=== PATIENT | male | born 1935 | race Native Hawaiian/Other Pacific Islander ===

== ENCOUNTER 2016-09-07 14:45 | Inpatient (IN) | payer OTHER ==
[~2016-09-07] VITALS: Ht 185.4 cm; Wt 112.7 kg
[2016-09-07 15:50] VITALS: BP 126/73; TEMP 99.1; Ht 185.4 cm; Wt 112.7 kg
[2016-09-07 20:00] VITALS: BP 137/74; TEMP 98.2
[2016-09-07 21:20] LABS: PLATELET COUNT 223 K/uL (142-355)
[2016-09-07 21:33] LABS: POTASSIUM 4.3 mmol/L (3.6-5.2)
[2016-09-08 08:00] VITALS: BP 154/71; TEMP 98
[2016-09-08] MEDS ORDERED: LISI5TAB10 PO (15:31)
[2016-09-08] MEDS ORDERED: FOLI1TAB26 PO (15:31)
[2016-09-08] MEDS ORDERED: METO25TA4 PO (15:32)
[2016-09-08] MEDS ORDERED: MULTIVITAMI1 PO (15:33)
[2016-09-08] MEDS ORDERED: PANTPAK PO (15:40)
[2016-09-08] MEDS ORDERED: MIRALAX3350 N1 PO (15:40)
[2016-09-08] MEDS ORDERED: THIA100T8 PO (15:41)
[2016-09-08] MEDS ORDERED: SEROQUEL25 MG PO (15:41)
[2016-09-08] MEDS ORDERED: BUDE1AER5 INH (15:42)
[2016-09-08] MEDS ORDERED: CETIRIZINE10 MG PO (15:42)
[2016-09-08] MEDS ORDERED: COLCRYS 0.6MG0.6 MG PO (15:43)
[2016-09-08] MEDS ORDERED: VITAMIN B-122500 MCG PO (15:43)
[2016-09-08] MEDS ORDERED: PRADAXA150 MG PO (15:43)
[2016-09-08] MEDS ORDERED: DIGOX250 MCG PO (15:44)
[2016-09-08] MEDS ORDERED: LACTTAB PO (15:44)
[2016-09-08] MEDS ORDERED: SIMV40TA57 PO (15:46)
[2016-09-08] MEDS ORDERED: FISH OIL1 C10 PO (15:46)
[2016-09-08] MEDS ORDERED: MAGNESIUM500 M1 PO (15:46)
[2016-09-08] MEDS ORDERED: ULORIC40 MG PO (15:47)
[2016-09-08] MEDS ORDERED: MYRBETRIQ25 MG PO (15:48)
== END 2016-09-08 12:45 | disposition short-term general hospital (02) | DRG 556 ==
LOC: MED/SURG 14:45
PROVIDERS: ADMIT Emergency Medicine
DX: M62.81 Muscle weakness (generalized) (principal); R53.81 Other malaise; R10.9 Unspecified abdominal pain; N45.1 Epididymitis; N43.2 Other hydrocele; I10 Essential (primary) hypertension; I48.91 Unspecified atrial fibrillation; J44.9 Chronic obstructive pulmonary disease, unspecified
CPT/HCPCS: 36415; 51702; 80053; 82272; 85027

== ENCOUNTER 2016-09-08 12:45 | Inpatient (IN) | payer OTHER ==
[~2016-09-08] VITALS: Ht 198.1 cm; Wt 111.8 kg
[2016-09-08 13:48] VITALS: BP 154/71; TEMP 98.7; Ht 198.1 cm; Wt 111.8 kg
[2016-09-08] MEDS ORDERED: FOLI1TAB26 PO (15:31)
[2016-09-08] MEDS ORDERED: LISI5TAB10 PO (15:31)
[2016-09-08] MEDS ORDERED: METO25TA4 PO (15:32)
[2016-09-08] MEDS ORDERED: MULTIVITAMI1 PO (15:33)
[2016-09-08] MEDS ORDERED: MIRALAX3350 N1 PO (15:40)
[2016-09-08] MEDS ORDERED: PANTPAK PO (15:40)
[2016-09-08] MEDS ORDERED: SEROQUEL25 MG PO (15:41)
[2016-09-08] MEDS ORDERED: THIA100T8 PO (15:41)
[2016-09-08] MEDS ORDERED: CETIRIZINE10 MG PO (15:42)
[2016-09-08] MEDS ORDERED: BUDE1AER5 INH (15:42)
[2016-09-08] MEDS ORDERED: PRADAXA150 MG PO (15:43)
[2016-09-08] MEDS ORDERED: VITAMIN B-122500 MCG PO (15:43)
[2016-09-08] MEDS ORDERED: COLCRYS 0.6MG0.6 MG PO (15:43)
[2016-09-08] MEDS ORDERED: LACTTAB PO (15:44)
[2016-09-08] MEDS ORDERED: DIGOX250 MCG PO (15:44)
[2016-09-08] MEDS ORDERED: FISH OIL1 C10 PO (15:46)
[2016-09-08] MEDS ORDERED: SIMV40TA57 PO (15:46)
[2016-09-08] MEDS ORDERED: MAGNESIUM500 M1 PO (15:46)
[2016-09-08] MEDS ORDERED: ULORIC40 MG PO (15:47)
[2016-09-08] MEDS ORDERED: MYRBETRIQ25 MG PO (15:48)
[2016-09-08 16:00] VITALS: BP 133/64; TEMP 98.1
[2016-09-08 20:00] VITALS: BP 134/57; TEMP 98.1
[2016-09-09] VITALS: BP 112/68; TEMP 98.1
[2016-09-09 04:00] VITALS: BP 118/60; TEMP 97.8
[2016-09-09 05:14] LABS: PLATELET COUNT 179 K/uL (142-355)
[2016-09-09 05:39] LABS: POTASSIUM 4.2 mmol/L (3.6-5.2)
[2016-09-09 08:00] VITALS: BP 121/65; TEMP 98.8
[2016-09-09 12:00] VITALS: BP 130/72; TEMP 98.3
[2016-09-09 16:00] VITALS: BP 131/62; TEMP 97.7
[2016-09-09 20:00] VITALS: BP 126/56; TEMP 98
[2016-09-10 00:15] VITALS: BP 147/79; TEMP 98
[2016-09-10 04:00] VITALS: BP 153/65; TEMP 97.4
[2016-09-10 05:51] LABS: PLATELET COUNT 167 K/uL (142-355)
[2016-09-10 06:01] LABS: POTASSIUM 3.7 mmol/L (3.6-5.2)
[2016-09-10 08:00] VITALS: BP 135/62; TEMP 98.6
[2016-09-10 12:00] VITALS: BP 128/64; TEMP 98.6
[2016-09-10 16:00] VITALS: BP 130/66; TEMP 98.2
[2016-09-10 20:18] VITALS: BP 166/66; TEMP 98.2
[2016-09-11] VITALS: BP 138/81; TEMP 98.1
[2016-09-11 04:00] VITALS: BP 129/56; TEMP 97.4
[2016-09-11 05:37] LABS: PLATELET COUNT 215 K/uL (142-355)
[2016-09-11 05:52] LABS: POTASSIUM 3.5 mmol/L (3.6-5.2)
[2016-09-11 08:00] VITALS: BP 119/68; TEMP 98
[2016-09-11 12:00] VITALS: BP 131/65; TEMP 97.8
[2016-09-11 16:00] VITALS: BP 140/72; TEMP 98.3
[2016-09-11 20:00] VITALS: BP 155/80; TEMP 97.4
[2016-09-12] VITALS: BP 91/58; TEMP 98
[2016-09-12 04:00] VITALS: BP 141/65; TEMP 97.5
[2016-09-12 08:00] VITALS: BP 159/76; TEMP 98.4
[2016-09-12 10:06] LABS: PLATELET COUNT 201 K/uL (142-355)
[2016-09-12 10:18] LABS: POTASSIUM 3.8 mmol/L (3.6-5.2)
[2016-09-12 12:00] VITALS: BP 170/82; TEMP 98.5
[2016-09-12 16:00] VITALS: BP 171/82; TEMP 97.4
[2016-09-12 20:00] VITALS: BP 185/71; TEMP 97.4
[2016-09-13 04:00] VITALS: BP 126/61; TEMP 97.6
[2016-09-13 05:05] LABS: PLATELET COUNT 201 K/uL (142-355)
[2016-09-13 05:24] LABS: POTASSIUM 3.5 mmol/L (3.6-5.2)
[2016-09-13 08:00] VITALS: BP 151/76; TEMP 97.3
[2016-09-13 12:00] VITALS: BP 146/55; TEMP 96.9
[2016-09-13 16:00] VITALS: BP 154/70; TEMP 97.7
[2016-09-13 20:00] VITALS: BP 137/68; TEMP 98.7
[2016-09-14] VITALS: BP 144/62; TEMP 98.3
[2016-09-14 04:00] VITALS: BP 144/73; TEMP 98
[2016-09-14 04:50] LABS: PLATELET COUNT 210 K/uL (142-355)
[2016-09-14 05:02] LABS: POTASSIUM 3.6 mmol/L (3.6-5.2)
[2016-09-14 08:00] VITALS: BP 139/52; TEMP 97.8
[2016-09-14 12:00] VITALS: BP 136/58; TEMP 97.6
[2016-09-14 16:00] VITALS: BP 141/62; TEMP 97.8
[2016-09-14 20:00] VITALS: BP 120/52; TEMP 97.7
[2016-09-15] VITALS (7 sets, daily range): BP systolic 121–165; BP diastolic 65–80; TEMP 97.6–98.5
[2016-09-15 04:46] LABS: PLATELET COUNT 178 K/uL (142-355)
[2016-09-15 05:12] LABS: POTASSIUM 2.9 mmol/L (3.6-5.2); SODIUM 144 mmol/L (136-145)
[2016-09-16] VITALS: BP 159/73; TEMP 98.2
[2016-09-16 04:00] VITALS: BP 130/67; TEMP 97.8
[2016-09-16 05:20] LABS: PLATELET COUNT 180 K/uL (142-355)
[2016-09-16 05:46] LABS: POTASSIUM 3.3 mmol/L (3.6-5.2)
[2016-09-16 08:23] VITALS: BP 148/81; TEMP 98.4
[2016-09-16 12:09] VITALS: BP 156/72; TEMP 98.6
[2016-09-16 16:00] VITALS: BP 114/53; TEMP 98.7
[2016-09-16 20:00] VITALS: BP 153/64; TEMP 97.7
[2016-09-17] VITALS: BP 104/71; TEMP 97.5
[2016-09-17 04:00] VITALS: BP 93/67; TEMP 98.4
[2016-09-17 08:00] VITALS: BP 150/69; TEMP 98.3
[2016-09-17 12:00] VITALS: BP 148/62; TEMP 98
== END 2016-09-17 14:30 | disposition home or self-care (01) | DRG 377 ==
LOC: MED/SURG 12:45
PROVIDERS: ADMIT Emergency Medicine
DX: K92.2 Gastrointestinal hemorrhage, unspecified (principal); I50.23 Acute on chronic systolic (congestive) heart failure; E87.0 Hyperosmolality and hypernatremia; D62 Acute posthemorrhagic anemia; I48.91 Unspecified atrial fibrillation; R74.8 Abnormal levels of other serum enzymes; E80.6 Other disorders of bilirubin metabolism; F03.90 Unspecified dementia, unspecified severity, without behavioral disturbance, psychotic disturbance, mood disturbance, and anxiety; R19.5 Other fecal abnormalities; E87.8 Other disorders of electrolyte and fluid balance, not elsewhere classified; K76.89 Other specified diseases of liver; N45.1 Epididymitis; I10 Essential (primary) hypertension
CPT/HCPCS: 36415; 36430; 80053; 80162; 82140; 82607; 82728; 82747; 82948; 83540; 83550; 83605; 83615; 83735; 83880; 84466; 85027; 85044; 86140; 86850; 86900; 86901; 86922; 87040; 87045; 87205; 87328; 87329; 87798; 87899; 93005; 94640; 94664; 94760; J1940; J3490; P9016; Q9963

== ENCOUNTER 2016-09-17 12:35 | Inpatient (IN) | payer OTHER ==
[~2016-09-17 12:35] MED LIST: BUDE1AER5 INH; CETIRIZINE10 MG PO; COLCRYS 0.6MG0.6 MG PO; DIGOX250 MCG PO; FISH OIL1 C10 PO; FOLI1TAB26 PO; LACTTAB PO; LISI5TAB10 PO; MAGNESIUM500 M1 PO; METO25TA4 PO; MIRALAX3350 N1 PO; MULTIVITAMI1 PO; MYRBETRIQ25 MG PO; PANTPAK PO; PRADAXA150 MG PO; SEROQUEL25 MG PO; SIMV40TA57 PO; THIA100T8 PO; ULORIC40 MG PO; VITAMIN B-122500 MCG PO
== END 2016-09-27 09:06 | disposition still patient (30) ==
LOC: PAVB 12:35 → PAVA 12:35 → PAVB 09-20 08:29
PROVIDERS: ADMIT Internal Medicine
DX: M62.81 Muscle weakness (generalized) (principal); K92.2 Gastrointestinal hemorrhage, unspecified; R41.82 Altered mental status, unspecified; N45.1 Epididymitis; R26.89 Other abnormalities of gait and mobility; R48.8 Other symbolic dysfunctions; M10.09 Idiopathic gout, multiple sites
CPT/HCPCS: 80061; 84550; G0103

== ENCOUNTER 2016-09-27 09:37 | Inpatient (IN) | payer OTHER | END 2016-10-28 09:30 | disposition still patient (30) | LOC: PAVB 09:37 | PROVIDERS: ADMIT Internal Medicine | DX: M62.81 Muscle weakness (generalized) (principal); K92.2 Gastrointestinal hemorrhage, unspecified; R41.82 Altered mental status, unspecified; N45.1 Epididymitis; R26.89 Other abnormalities of gait and mobility; R48.8 Other symbolic dysfunctions; M10.09 Idiopathic gout, multiple sites | CPT/HCPCS: 87045; 87205; 87328; 87329; 87493; 87798; 87899 ==

== ENCOUNTER 2016-10-28 09:41 | Inpatient (IN) | payer OTHER | END 2016-11-27 15:19 | disposition still patient (30) | LOC: PAVB 09:41 | PROVIDERS: ADMIT Internal Medicine | DX: Z51.89 Encounter for other specified aftercare (principal) ==

== ENCOUNTER 2016-11-27 15:28 | Inpatient (IN) | payer OTHER | END 2016-12-28 09:31 | disposition still patient (30) | LOC: PAVB 15:28 | PROVIDERS: ADMIT Internal Medicine | DX: Z51.89 Encounter for other specified aftercare (principal) ==

== ENCOUNTER 2016-12-08 17:43 | Outpatient (CLI) | payer OTHER | END 2016-12-08 18:45 | disposition home or self-care (01) | LOC: RAD 17:43 | DX: R05 Cough (principal); R09.3 Abnormal sputum ==

== ENCOUNTER 2016-12-28 09:50 | Inpatient (IN) | payer OTHER | END 2017-01-28 08:39 | disposition still patient (30) | LOC: PAVB 09:50 | PROVIDERS: ADMIT Internal Medicine | DX: Z51.89 Encounter for other specified aftercare (principal) ==

== ENCOUNTER 2017-01-21 15:17 | Outpatient (CLI) | payer OTHER | END 2017-01-21 19:09 | disposition home or self-care (01) | LOC: LAB 15:17 → RAD 15:17 | DX: M54.89 Other dorsalgia (principal) | CPT/HCPCS: 81000 ==

== ENCOUNTER 2017-01-28 08:56 | Inpatient (IN) | payer OTHER | END 2017-02-27 10:10 | disposition still patient (30) | LOC: PAVB 08:56 | PROVIDERS: ADMIT Internal Medicine | DX: Z51.89 Encounter for other specified aftercare (principal) ==

== ENCOUNTER 2017-02-14 14:09 | Outpatient (CLI) | payer OTHER ==
[2017-02-14 14:33] LABS: POTASSIUM 3.9 mmol/L (3.6-5.2)
== END 2017-02-14 15:10 | disposition home or self-care (01) ==
LOC: LAB 14:09
PROVIDERS: Internal Medicine
DX: E87.6 Hypokalemia (principal); R60.0 Localized edema
CPT/HCPCS: 80048; 83735

== ENCOUNTER 2017-02-27 10:27 | Inpatient (IN) | payer OTHER | END 2017-03-30 12:54 | disposition still patient (30) | LOC: PAVB 10:27 | PROVIDERS: ADMIT Internal Medicine ==

== ENCOUNTER 2017-02-28 04:43 | Outpatient (CLI) | payer OTHER ==
[2017-02-28 05:33] LABS: PLATELET COUNT 147 K/uL (142-355)
== END 2017-02-28 05:45 | disposition home or self-care (01) ==
LOC: LAB 04:43
PROVIDERS: Internal Medicine
DX: D51.8 Other vitamin B12 deficiency anemias (principal); I10 Essential (primary) hypertension; I48.91 Unspecified atrial fibrillation
CPT/HCPCS: 36415; 80053; 80162; 83735; 84550; 85027

== ENCOUNTER 2017-03-30 13:12 | Inpatient (IN) | payer OTHER | END 2017-04-29 09:14 | disposition still patient (30) | LOC: PAVB 13:12 | PROVIDERS: ADMIT Internal Medicine ==

== ENCOUNTER 2017-04-29 09:26 | Inpatient (IN) | payer OTHER | END 2017-05-30 09:27 | disposition still patient (30) | LOC: PAVB 09:26 | PROVIDERS: ADMIT Internal Medicine ==

== ENCOUNTER 2017-05-30 09:47 | Inpatient (IN) | payer OTHER | END 2017-06-30 09:46 | disposition still patient (30) | LOC: PAVB 09:47 | PROVIDERS: ADMIT Internal Medicine ==

== ENCOUNTER 2017-06-30 10:23 | Inpatient (IN) | payer OTHER | END 2017-07-28 09:13 | disposition still patient (30) | LOC: PAVB 10:23 | PROVIDERS: ADMIT Internal Medicine ==

== ENCOUNTER 2017-07-28 09:26 | Inpatient (IN) | payer OTHER | END 2017-08-28 08:00 | disposition still patient (30) | LOC: PAVB 09:26 | PROVIDERS: ADMIT Internal Medicine ==

== ENCOUNTER 2017-08-28 09:00 | Inpatient (IN) | payer OTHER | END 2017-09-27 09:01 | disposition still patient (30) | LOC: PAVB 09:00 | PROVIDERS: ADMIT Internal Medicine ==

== ENCOUNTER 2017-08-31 06:27 | Outpatient (CLI) | payer OTHER ==
[2017-08-31 07:01] LABS: PLATELET COUNT 145 K/uL (142-355)
[2017-08-31 07:19] LABS: POTASSIUM 4.1 mmol/L (3.6-5.2)
== END 2017-08-31 22:24 | disposition home or self-care (01) ==
LOC: LAB 06:27
PROVIDERS: Internal Medicine
DX: I10 Essential (primary) hypertension (principal); E78.4 Other hyperlipidemia
CPT/HCPCS: 80053; 80061; 80162; 83735; 84153; 84550; 85027

== ENCOUNTER 2017-09-27 09:11 | Inpatient (IN) | payer OTHER | END 2017-10-28 08:50 | disposition still patient (30) | LOC: PAVB 09:11 | PROVIDERS: ADMIT Internal Medicine ==

== ENCOUNTER 2017-10-28 08:59 | Inpatient (IN) | payer OTHER | END 2017-11-27 14:17 | disposition still patient (30) | LOC: PAVB 08:59 | PROVIDERS: ADMIT Internal Medicine ==

== ENCOUNTER 2017-11-27 14:39 | Inpatient (IN) | payer OTHER | END 2017-12-28 08:00 | disposition still patient (30) | LOC: PAVB 14:39 | PROVIDERS: ADMIT Internal Medicine ==

== ENCOUNTER 2017-11-28 14:14 | Outpatient (CLI) | payer OTHER | END 2017-11-28 19:52 | disposition home or self-care (01) | LOC: MRI 14:14 | DX: M54.5 Low back pain (principal) ==

== ENCOUNTER 2017-12-14 06:39 | Outpatient (CLI) | payer OTHER ==
[2017-12-14 07:45] LABS: PLATELET COUNT 184 K/uL (142-355)
[2017-12-14 08:00] LABS: POTASSIUM 5.2 mmol/L (3.6-5.2)
[2017-12-14 08:15] LABS: PARTIAL THROMBOPLASTIN TIME 19.8 SECONDS (24.5-33.6)
== END 2017-12-14 22:29 | disposition home or self-care (01) ==
LOC: RESP 06:39 → LAB 06:39
PROVIDERS: Internal Medicine
DX: I10 Essential (primary) hypertension (principal); E78.4 Other hyperlipidemia; Z79.899 Other long term (current) drug therapy; Z51.81 Encounter for therapeutic drug level monitoring; Z01.818 Encounter for other preprocedural examination
CPT/HCPCS: 80048; 85027; 85610; 85730; 93005

== ENCOUNTER 2017-12-27 14:25 | Outpatient (CLI) | payer OTHER | END 2017-12-27 23:43 | disposition home or self-care (01) | LOC: RAD 14:25 | DX: Z09 Encounter for follow-up examination after completed treatment for conditions other than malignant neoplasm (principal) ==

== ENCOUNTER 2017-12-28 09:00 | Inpatient (IN) | payer OTHER | END 2018-01-28 10:16 | disposition still patient (30) | LOC: PAVB 09:00 | PROVIDERS: ADMIT Internal Medicine ==

== ENCOUNTER 2018-01-28 10:43 | Inpatient (IN) | payer OTHER | END 2018-02-27 09:17 | disposition still patient (30) | LOC: PAVB 10:43 | PROVIDERS: ADMIT Internal Medicine ==

== ENCOUNTER 2018-02-27 09:40 | Inpatient (IN) | payer OTHER | END 2018-03-30 08:44 | disposition still patient (30) | LOC: PAVB 09:40 | PROVIDERS: ADMIT Internal Medicine ==

== ENCOUNTER 2018-02-28 05:48 | Outpatient (CLI) | payer OTHER ==
[2018-02-28 06:42] LABS: PLATELET COUNT 157 K/uL (142-355)
[2018-02-28 07:03] LABS: POTASSIUM 4.7 mmol/L (3.6-5.2)
== END 2018-02-28 22:57 | disposition home or self-care (01) ==
LOC: LAB 05:48
PROVIDERS: Internal Medicine
DX: E53.8 Deficiency of other specified B group vitamins (principal); Z79.899 Other long term (current) drug therapy; I10 Essential (primary) hypertension; E78.5 Hyperlipidemia, unspecified; M10.9 Gout, unspecified
CPT/HCPCS: 36415; 80053; 80162; 82607; 83735; 84550; 85027

== ENCOUNTER 2018-03-03 13:03 | Outpatient (CLI) | payer OTHER | END 2018-03-03 19:35 | disposition home or self-care (01) | LOC: US 13:03 | DX: R26.2 Difficulty in walking, not elsewhere classified (principal) ==

== ENCOUNTER 2018-03-30 09:28 | Inpatient (IN) | payer OTHER | END 2018-04-29 08:29 | disposition still patient (30) | LOC: PAVB 09:28 | PROVIDERS: ADMIT Internal Medicine ==

== ENCOUNTER 2018-04-29 08:57 | Inpatient (IN) | payer OTHER | END 2018-05-30 11:04 | disposition still patient (30) | LOC: PAVB 08:57 | PROVIDERS: ADMIT Internal Medicine ==

== ENCOUNTER 2018-05-30 11:10 | Inpatient (IN) | payer OTHER | END 2018-06-30 10:47 | disposition still patient (30) | LOC: PAVB 11:10 | PROVIDERS: ADMIT Internal Medicine ==

== ENCOUNTER 2018-05-31 05:27 | Outpatient (CLI) | payer OTHER | END 2018-05-31 21:29 | disposition home or self-care (01) | LOC: LAB 05:27 | DX: E87.6 Hypokalemia (principal) | CPT/HCPCS: 82306; 82310 ==

== ENCOUNTER 2018-06-30 10:57 | Inpatient (IN) | payer OTHER | END 2018-07-28 10:14 | disposition still patient (30) | LOC: PAVB 10:57 | PROVIDERS: ADMIT Internal Medicine ==

== ENCOUNTER 2018-07-26 06:16 | Outpatient (CLI) | payer OTHER | END 2018-07-26 19:39 | disposition home or self-care (01) | LOC: LAB 06:16 | DX: Z51.81 Encounter for therapeutic drug level monitoring (principal) | CPT/HCPCS: 36415; 82565 ==

== ENCOUNTER 2018-07-28 10:22 | Inpatient (IN) | payer OTHER | END 2018-08-28 10:34 | disposition still patient (30) | LOC: PAVB 10:22 | PROVIDERS: ADMIT Internal Medicine ==

== ENCOUNTER 2018-08-22 09:06 | Outpatient (CLI) | payer OTHER | END 2018-08-22 21:03 | disposition home or self-care (01) | LOC: RESP 09:06 | DX: G56.03 Carpal tunnel syndrome, bilateral upper limbs (principal); G56.23 Lesion of ulnar nerve, bilateral upper limbs; G62.9 Polyneuropathy, unspecified ==

== ENCOUNTER 2018-08-28 10:42 | Inpatient (IN) | payer OTHER | END 2018-09-27 11:08 | disposition still patient (30) | LOC: PAVB 10:42 | PROVIDERS: ADMIT Internal Medicine | CPT/HCPCS: 95911 ==

== ENCOUNTER 2018-08-30 06:06 | Outpatient (CLI) | payer OTHER ==
[2018-08-30 08:26] LABS: PLATELET COUNT 131 K/uL (142-355)
[2018-08-30 09:09] LABS: POTASSIUM 4.4 mmol/L (3.6-5.2)
== END 2018-08-30 19:38 | disposition home or self-care (01) ==
LOC: LAB 06:06
PROVIDERS: Internal Medicine
DX: I10 Essential (primary) hypertension (principal); M10.9 Gout, unspecified; E78.49 Other hyperlipidemia; Z79.899 Other long term (current) drug therapy
CPT/HCPCS: 36415; 80053; 80061; 80162; 82607; 83735; 84153; 84550; 85027

== ENCOUNTER 2018-09-27 11:20 | Inpatient (IN) | payer OTHER | END 2018-10-28 08:33 | disposition still patient (30) | LOC: PAVB 11:20 | PROVIDERS: ADMIT Internal Medicine ==

== ENCOUNTER 2018-10-28 09:03 | Inpatient (IN) | payer OTHER | END 2018-11-27 09:33 | disposition still patient (30) | LOC: PAVB 09:03 | PROVIDERS: ADMIT Internal Medicine ==

== ENCOUNTER 2018-11-27 10:21 | Inpatient (IN) | payer OTHER | END 2018-12-28 10:32 | disposition still patient (30) | LOC: PAVB 10:21 | PROVIDERS: ADMIT Internal Medicine ==

== ENCOUNTER 2018-12-01 06:24 | Outpatient (CLI) | payer OTHER | END 2018-12-01 20:40 | disposition home or self-care (01) | LOC: LAB 06:24 | DX: Z79.899 Other long term (current) drug therapy (principal) | CPT/HCPCS: 36415; 82310 ==

== ENCOUNTER 2018-12-28 10:46 | Inpatient (IN) | payer OTHER | END 2019-01-28 16:23 | disposition still patient (30) | LOC: PAVB 10:46 | PROVIDERS: ADMIT Internal Medicine | CPT/HCPCS: G0283-GP ==

== ENCOUNTER 2019-01-28 16:50 | Inpatient (IN) | payer OTHER | END 2019-02-27 09:18 | disposition still patient (30) | LOC: PAVB 16:50 | PROVIDERS: ADMIT Internal Medicine ==

== ENCOUNTER 2019-02-27 09:42 | Inpatient (IN) | payer OTHER | END 2019-03-30 11:06 | disposition still patient (30) | LOC: PAVB 09:42 | PROVIDERS: ADMIT Internal Medicine ==

== ENCOUNTER 2019-02-28 08:10 | Outpatient (CLI) | payer OTHER ==
[2019-02-28 08:23] LABS: PLATELET COUNT 150 K/uL (142-355)
[2019-02-28 08:46] LABS: POTASSIUM 4.1 mmol/L (3.6-5.2)
== END 2019-02-28 23:48 | disposition home or self-care (01) ==
LOC: LAB 08:10
PROVIDERS: Internal Medicine
DX: E61.2 Magnesium deficiency (principal); E53.8 Deficiency of other specified B group vitamins; I10 Essential (primary) hypertension; I48.0 Paroxysmal atrial fibrillation; Z79.899 Other long term (current) drug therapy
CPT/HCPCS: 80053; 80162; 82607; 83735; 84550; 85027

== ENCOUNTER 2019-04-06 13:40 | Outpatient (CLI) | payer OTHER | END 2019-04-06 22:18 | disposition home or self-care (01) | LOC: RAD 13:40 | DX: J44.9 Chronic obstructive pulmonary disease, unspecified (principal); R05 Cough; R09.02 Hypoxemia ==

== ENCOUNTER 2019-04-16 13:31 | Outpatient (CLI) | payer OTHER | END 2019-04-16 21:10 | disposition home or self-care (01) | LOC: RAD 13:31 | DX: R05 Cough (principal); J44.1 Chronic obstructive pulmonary disease with (acute) exacerbation ==

== ENCOUNTER 2019-04-29 10:10 | Inpatient (IN) | payer OTHER | END 2019-05-30 08:32 | disposition still patient (30) | LOC: PAVB 10:10 | PROVIDERS: ADMIT Internal Medicine ==

== ENCOUNTER 2019-05-30 08:36 | Inpatient (IN) | payer OTHER | END 2019-06-30 09:53 | disposition still patient (30) | LOC: PAVB 08:36 | PROVIDERS: ADMIT Internal Medicine ==

== ENCOUNTER 2019-06-01 07:21 | Outpatient (CLI) | payer OTHER | END 2019-06-01 19:28 | disposition home or self-care (01) | LOC: LAB 07:21 | DX: M81.0 Age-related osteoporosis without current pathological fracture (principal) | CPT/HCPCS: 82306; 82310 ==

== ENCOUNTER 2019-06-30 10:21 | Inpatient (IN) | payer OTHER | END 2019-07-29 13:11 | disposition still patient (30) | LOC: PAVB 10:21 | PROVIDERS: ADMIT Internal Medicine ==

== ENCOUNTER 2019-07-29 13:43 | Inpatient (IN) | payer OTHER | END 2019-08-29 09:35 | disposition still patient (30) | LOC: PAVB 13:43 | PROVIDERS: ADMIT Internal Medicine ==

== ENCOUNTER 2019-08-13 15:52 | Outpatient (CLI) | payer OTHER | END 2019-08-13 23:11 | disposition home or self-care (01) | LOC: RAD 15:52 | DX: R06.02 Shortness of breath (principal); R06.2 Wheezing ==

== ENCOUNTER 2019-08-29 09:55 | Inpatient (IN) | payer OTHER | END 2019-09-28 08:59 | disposition still patient (30) | LOC: PAVB 09:55 | PROVIDERS: ADMIT Internal Medicine | CPT/HCPCS: 80061; 84153 ==

== ENCOUNTER 2020-04-16 14:23 | Outpatient (CLI) | payer OTHER ==
[2020-04-16 15:06] LABS: PLATELET COUNT 151 K/uL (142-355)
[2020-04-16 15:25] LABS: POTASSIUM 4.3 mmol/L (3.6-5.2)
== END 2020-04-16 20:49 | disposition home or self-care (01) ==
LOC: LAB 14:23
PROVIDERS: ATTEND Internal Medicine
DX: I48.91 Unspecified atrial fibrillation (principal); D64.89 Other specified anemias; F03.90 Unspecified dementia, unspecified severity, without behavioral disturbance, psychotic disturbance, mood disturbance, and anxiety; I10 Essential (primary) hypertension; I48.20 Chronic atrial fibrillation, unspecified; J44.9 Chronic obstructive pulmonary disease, unspecified; R53.83 Other fatigue; R53.81 Other malaise; Z79.899 Other long term (current) drug therapy
CPT/HCPCS: 80053; 80061; 82306; 83036; 84153; 84439; 84443; 84481; 85027

== ENCOUNTER 2020-11-17 11:37 | Outpatient (CLI) | payer OTHER | END 2020-11-17 14:01 | disposition home or self-care (01) | LOC: RAD 11:37 | PROVIDERS: ATTEND Nurse Practitioner Family | DX: J40 Bronchitis, not specified as acute or chronic (principal); R06.02 Shortness of breath; R06.2 Wheezing ==

== ENCOUNTER 2021-03-06 09:39 | Inpatient (IN) | payer OTHER ==
[~2021-03-06] VITALS: Ht 185.4 cm; Wt 111.8 kg
[~2021-03-06 09:39] MED LIST changes: +DIGOX125 MCG PO; -DIGOX250 MCG PO
[2021-03-06 09:55] VITALS: BP 166/89; TEMP 97.9
[2021-03-06 10:22] LABS: PLATELET COUNT 146 K/uL (142-355)
[2021-03-06 10:41] LABS: PARTIAL THROMBOPLASTIN TIME 36.7 SECONDS (24.5-33.6)
[2021-03-06 10:43] LABS: POTASSIUM 3.9 mmol/L (3.6-5.2); SODIUM 139 mmol/L (136-145)
--- NOTE | 2021-03-06 11:58 | NUR ---
Pt. ADMITTED TO ROOM [address] ALLEN. STATES "LAST NIGHT I FELT PRESSURE IN MY CHEST AND COULDN'T BREATH GOOD". Pt. HAS O2 AT 2L VIA N/C. Pt. UNABLE TO HOLD URINE AND URINATED ON PANTS.
[2021-03-06 14:51] VITALS: BP 159/73; TEMP 97.5; Ht 185.4 cm; Wt 111.8 kg
[2021-03-06 16:00] VITALS: BP 170/81; TEMP 97.6
[2021-03-06 20:00] VITALS: BP 123/64; TEMP 97.9
--- NOTE | 2021-03-06 20:17 | NUR ---
ON ROUNDING PATIENT IS SITTING UP IN THE BED. SHIFT ASSESSMENT COMPLETED. PATIENT HAS DIFFUSE EXPIRATORY WHEEZING. PATIENT ASSISTED WITH PUTTING ON BOXERS AND WHITE T-SHIRT AND THEN PUTTING ON GOWN. PATIENT WAS ABLE TO STAND UP AND WALK TO THE HEAD OF THE BED AND GET IN BED W/O ASSISTANCE. BED LOCKED IN LOW POSITION, CALL RAINEY WITHIN REACH.
[2021-03-07 00:12] VITALS: BP 140/78; TEMP 98.4
--- NOTE | 2021-03-07 00:45 | NUR ---
PATIENT RESTING QUIETLY WITH EYES CLOSED. AUDIBLE WHEEZING IS STILL NOTED AT REST. PATIENT IS GETTING DUONEBS TREATMENTS Q4 AND Q2 PRN. BED IS LOCKED IN LOW POSITION, SIDERAILS X2.
--- NOTE | 2021-03-07 03:57 | NUR ---
PATIENT IS RESTING QUIETLY WITH EYES CLOSED WHEN ROUNDING. ON FURTHER ASSESSMENT PATIENT IS NOTED WITH AUDIBLE WHEEZING WHILE ASLEEP. WILL LOOK AT ORDERS FOR ANY BREATHING TREATMENTS. BED LOCKED IN LOW POSITION AND SIDERAILS UP X2. CALL RAINEY WITHIN REACH.
[2021-03-07 04:00] VITALS: BP 143/89; TEMP 98.3
[2021-03-07 04:48] LABS: PLATELET COUNT 127 K/uL (142-355)
[2021-03-07 04:53] LABS: POTASSIUM 3.9 mmol/L (3.6-5.2)
[2021-03-07 08:00] VITALS: BP 141/63; TEMP 97.6
--- NOTE | 2021-03-07 08:00 | NUR ---
PT IN RESTROOM. PT INSTRUCTED TO CALL BEFORE GETTING OOB. PT STATES THAT HE WILL DO SO.
--- NOTE | 2021-03-07 09:30 | NUR ---
PT CALLED FOR ASSIST, ASSITANCE GIVEN TO RESTROOM, PT UNSTEADY ON HIS FEET.
--- NOTE | 2021-03-07 11:30 | NUR ---
PT CALLED FOR ASSISTANCE, ASSISTED TO STAND TO VOID IN URINAL.
[2021-03-07 12:00] VITALS: BP 112/69; TEMP 97.7
--- NOTE | 2021-03-07 13:27 | NUR ---
SOPZAYRA WITH PTS DAUGHTER, GALLO TO GIVE UPDATE
[2021-03-07] MEDS ORDERED: FURO40TA93 PO (13:32)
[2021-03-07] MEDS ORDERED: POTASSIUM CHLO20 ME2 PO (13:34)
[2021-03-07] MEDS ORDERED: METO50TA63 PO (13:43)
[2021-03-07] MEDS ORDERED: EUTHYROX75 MCG PO (13:48)
[2021-03-07] MEDS ORDERED: SIMV40TA57 (13:49)
[2021-03-07] MEDS ORDERED: PANTOPRAZOLE 40MG TA PO (13:52)
[2021-03-07] MEDS ORDERED: MONTELUKAST SOD10 MG PO (13:53)
[2021-03-07] MEDS ORDERED: FINASTERIDE5 MG PO (13:54)
[2021-03-07] MEDS ORDERED: TAMS0.4C PO (13:57)
[2021-03-07] MEDS ORDERED: MYRBETRIQ ER PO (14:01)
--- NOTE | 2021-03-07 14:04 | NUR ---
HOME MED LIST UPDATED ACCORDING TO BOTTLES. ATTEMPTED TO CALL [facility] NO ANSWER. DAUGHTER GALLO STATES THAT PT [facility]
[2021-03-07 16:00] VITALS: BP 92/74; TEMP 97.6
--- NOTE | 2021-03-07 17:00 | NUR ---
PT CALLED FOR ASSIST, STOOD AT PTS SIDE FOR HIM TO VOID
[2021-03-07 20:20] VITALS: BP 181/90; TEMP 98.2
--- NOTE | 2021-03-07 20:35 | NUR ---
SHIFT ASSESSMENT COMPLETED. PATIENT MEDS GIVEN. PATIENT IV TO THE LEFT FOREARM INFILTRATED. AREA RED TO TOUCH AND PAINFUL. ICE PACK PLACED AT THIS TIME. PATIENT ASSISTED BACK UP IN THE BED. BED IS LOCKED IN LOW POSITION, SIDERAIL X2, CALL RAINEY WITHIN REACH.
--- NOTE | 2021-03-07 22:57 | NUR ---
LATE ENTRY PATIENT FAMILY MEMBER WAS UPDATED ON THE PATIENTS CURRENT CONDITION
[2021-03-08 00:19] VITALS: BP 161/80; TEMP 97.5
--- NOTE | 2021-03-08 00:38 | NUR ---
PATIENT IV INFILTRATED. PATIENTS ARM WAS ICED ANAD ELIVATED. ANTIBOITIC WAS A NON VESICANT. PATIENT DENIES ANY PAIN OR ITCHING. PATIENT IN NO APPARENT DISTRESS
[2021-03-08 04:00] VITALS: BP 116/67; TEMP 97.6
--- NOTE | 2021-03-08 04:22 | NUR ---
LATE ENTRY: PATIENT RECIEVED A NEW IV TO THE LEFT HANG. 20G WITH ONE STICK, SALINE LOCKED
[2021-03-08 04:51] LABS: POTASSIUM 4.1 mmol/L (3.6-5.2)
[2021-03-08 04:58] LABS: PLATELET COUNT 131 K/uL (142-355)
[2021-03-08 08:00] VITALS: BP 127/61; TEMP 97.6
--- NOTE | 2021-03-08 09:15 | NUR ---
IN PT'S ROOM FOR MORNING ASSESSMENT AND MED ADMINISTRATION. PT IS SITTING UP ON THE BEDSIDE EATING BREAKFAST. PT IS ALERT AND ORIENTED X4 AND ANSWERS QUESTIONS APPROPRIATELY. LUNG SOUNDS ARE CLEAR AND A NONPRODUCTIVE COUGH IS PRESENT. S1 AND S2 HEART SOUNDS ARE AUSCULTATED, RADIAL PULSES ARE STRONG. +2 PITTING EDEMA IS PRESENT IN THE BLE, PEDAL PULSES ARE WEAK. BOWEL SOUNDS ARE PRESENT IN ALL FOUR QUADRANTS. PT HAS REDDENED DISCOLORED AREAS ON ARMS THAT ARE NORMAL WITH AGING. PT TOOK MORNING MEDICATIONS WITHOUT ANY DIFFICULTY. PT DENIES PAIN OR ANY NEEDS AT THIS TIME. PT WAS LEFT ON THE SIDE OF THE BED WITH CALL LIGHT WITHIN REACH. PT WAS INSTRUCTED TO CALL METHODOLOGIST PRIOR TO GETTING UP TO THE BS FOR ASSISTANCE. NO ACUTE DISTRESS IS NOTED AT THIS TIME. WILL CONTINUE TO MONITOR.
[2021-03-08 12:00] VITALS: BP 142/52; TEMP 97.6
--- NOTE | 2021-03-08 12:10 | NUR ---
PT CALLED FOR URINAL TO BE EMPTIED. WHEN COOK RO[facility] ENTERED THE ROOM THE PT WAS IN HIGH FOWLERS IN THE BED WATCHING TV. [facility] EMPTIED 850ML OF CLEAR YELLOW URINE FROM THE URINAL. SCHEDULED LEVAQUIN WAS HUNG, IV FLUSHED WITHOUT ANY DIFFICULTY. PT DENIES ANY NEEDS AT THIS TIME. WILL CONTINUE TO MONITOR.
[2021-03-08 16:00] VITALS: BP 140/71; TEMP 96.4
[2021-03-08 20:21] VITALS: BP 142/69; TEMP 98.4
[2021-03-09 00:11] VITALS: BP 147/50; TEMP 98.4
--- NOTE | 2021-03-09 01:35 | NUR ---
PT'S FAMILY MEMBER GALLO SANDERS CALLED FOR UPDATE ON PATIENT. INFORMATION WAS PROVIDED. THIS TIME WAS 21:30pm on the 03/09/21.
[2021-03-09 04:06] VITALS: BP 129/72; TEMP 97.9
--- NOTE | 2021-03-09 04:18 | NUR ---
PT CONTINUES TO REST QUIETLY. EYES CLOSED. NO RESP DISTRESS NOTED. O2 SAT IS 96 PERCENT.
[2021-03-09 05:31] LABS: PLATELET COUNT 139 K/uL (142-355)
[2021-03-09 05:51] LABS: POTASSIUM 3.8 mmol/L (3.6-5.2)
[2021-03-09 08:00] VITALS: BP 109/78; TEMP 98
[2021-03-09 12:00] VITALS: BP 122/60; TEMP 97.7
--- NOTE | 2021-03-09 13:26 | NUR ---
PT UP SITTING ON THE SIDE OF HIS BED. PT ALERT AND ORIENTED. PT COHERENT AND REMEMBERS ALL OF HIS DOCTORS APPOINTMENTS AND FAMILY HISTORY. PT HAS CLOTHES ON HANGERS AND SPREAD AROUND IN HIS ROOM. PT SELF-CARE WITH MINIMUM ASSISTANCE. DENIES ANY PAIN/DISCOMFORT AT PRESENT TIME. IV SITE TO LEFT HAND INTACT WITH NO SWELLING OR REDNESS NOTED. PTS EYE DROPS ARE AT BEDSIDE, PT STATED "I'VE ALREADY PUT MY DROPS IN. AM MEDS AND ABX ADMINISTERED ORDERED AND PT TOLERATED PO MEDS WELL WITH NO DIFFICULTY SWALLOWING.
[2021-03-09 16:00] VITALS: BP 140/81; TEMP 97.4
--- NOTE | 2021-03-09 18:59 | NUR ---
PT UP MAKING UP BED AND GAVE HIMSELF A BEDBATH TO PREPARE FOR BED TONIGHT. IV SITE TO LEFT HAND DISCONTINUED, PT ACCIDENTALLY PULLED OUT IV SITE TO LEFT HAND WHILE CHANGING CLOTHES. PT A&O X4. NAD NOTED. DENIES ANY PAIN OR DISCOMFORT. NICOTINE PATCH APPLIED TO LEFT ARM.
[2021-03-09 20:00] VITALS: BP 120/57; TEMP 97.7
--- NOTE | 2021-03-09 21:45 | NUR ---
20 G TO RIGHT ANTECUBITAL INSERTED X'S ONE ATTEMPT AT THIS TIME. IV SITE IS PATENT W/O ANY SIGNS OF EDEMA OR ERRYTHEMA AROUND THE SITE. NO S/S OF ACUTE DISTRESS NOTED OR EXHIBITED BY THE PT AT THIS TIME.
--- NOTE | 2021-03-09 22:49 | NUR ---
PM MEDS GIVEN AT THIS TIME. PT. TOLERATED WELL. PT. GOT UP TO THE EDGE OF THE BED TO TAKE MEDICATIONS. PT'S SOUNDED SHORT OF BREATH AND WINDED UPON EXERTION. EXPIRATORY AND INSPIRATORY WHEEZING HEARD W/O STETHOSCOPE AT THIS TIME. PRN BREATHING TX GIVEN AT THIS TIME. WILL CONTINUE TO MONITOR FOR ANY ACUTE CHANGES. BESIDES AUDIBLE WHEEZING, PT DENIES ANY OTHER NEEDS OR COMPLAINTS AT THIS TIME. PT LAID DOWN AND STATED "I'M READY FOR BED". CALL LIGHT WITHIN REACH AND VETERINARY MICROBIOLOGIST EXITED ROOM.
[2021-03-10] VITALS: BP 136/56; TEMP 98.2
--- NOTE | 2021-03-10 03:14 | NUR ---
0315 TX NOT GIVEN. PT REQUESTED NOT TO BE AWAKEN FOR TX.
[2021-03-10 04:00] VITALS: BP 130/54; TEMP 97.8
--- NOTE | 2021-03-10 05:20 | NUR ---
AUDIBLE WHEEZING HEARD AT THIS TIME BY PT AT THIS TIME. PRN BREATHING TX DONE BY RESP. AT THIS TIME. WILL REPORT IN AM SHIFT REPORT.
[2021-03-10 05:43] LABS: PLATELET COUNT 141 K/uL (142-355)
[2021-03-10 05:55] LABS: POTASSIUM 3.6 mmol/L (3.6-5.2)
[2021-03-10 08:00] VITALS: BP 125/83; TEMP 98.5
--- NOTE | 2021-03-10 10:53 | NUR ---
Patient has a follow up appointment with Dr. Manriquez's SUPERVISOR NUTRITIONAL YEAST Juan Carlos Bravo on 03/17/21 @ 11am. Inorganic Chemist notifed patient and nurse of the appointment. Inorganic Chemist also reminded him of his appointment with Dr. Iyer on 03/13/21 that was scheduled prior to hospital admission.
[2021-03-10 12:00] VITALS: BP 145/68; TEMP 97.8
--- NOTE | 2021-03-10 13:27 | NUR ---
PT DISCHARGED TO GO HOME PER HCP. PT UP SITTING ON THE BED. LUNG SOUNDS CLEAR. NAD NOTED. PT HAS PRODUCTIVE COUGH. IV SITE TO RIGHT FA DISCONTINUED WITH SWELLING OR REDNESS NOTED. PTS HOME MED GIVEN TO PT. DISCHARGE INSTRUCTIONS AND F/U APPOINTMENTS AND REFERRAL GIVEN TO PT, ALONG WITH PRESCRIPTIONS. DISCHARGE INSTRUCTIONS GIVEN TO CAREGIVER WHO CAME TO PICK PT UP FROM FACILITY. PT TRANSPORTED OUT OF FACILITY IN WHEELCHAIR WITH PERSONAL BELONGINGS.
== END 2021-03-10 13:35 | disposition home or self-care (01) | DRG 193 ==
LOC: ED 09:39 → MED/SURG 11:15
PROVIDERS: Hospitalist; ADMIT Internal Medicine Endocrinology, Diabetes & Metabolism; ATTEND Internal Medicine Endocrinology, Diabetes & Metabolism
DX: J18.8 Other pneumonia, unspecified organism (principal); J96.01 Acute respiratory failure with hypoxia; J44.0 Chronic obstructive pulmonary disease with (acute) lower respiratory infection; J44.1 Chronic obstructive pulmonary disease with (acute) exacerbation; I48.91 Unspecified atrial fibrillation; N40.0 Benign prostatic hyperplasia without lower urinary tract symptoms; E03.8 Other specified hypothyroidism; I10 Essential (primary) hypertension; M10.9 Gout, unspecified
CPT/HCPCS: 36415; 36600; 80048; 80053; 80162; 82550; 82805; 83880; 84484; 85027; 85610; 85730; 87040; 87635; 90686; 93005; 94640; 94664; 94760; 96365; 96367; 96374; 96375; 99284; J0456; J1650; J1940; J1956; J2930; U0003

== ENCOUNTER 2021-03-19 09:12 | Outpatient (CLI) | payer OTHER ==
[~2021-03-19 09:12] MED LIST changes: +EUTHYROX75 MCG PO; +FINASTERIDE5 MG PO; +FURO40TA93 PO; +METO50TA63 PO; +MONTELUKAST SOD10 MG PO; +MYRBETRIQ ER PO; +PANTOPRAZOLE 40MG TA PO; +POTASSIUM CHLO20 ME2 PO; +SIMV40TA57; +TAMS0.4C PO
[2021-03-19 09:32] LABS: PLATELET COUNT 126 K/uL (142-355)
[2021-03-19 10:00] LABS: POTASSIUM 3.9 mmol/L (3.6-5.2)
== END 2021-03-19 18:54 | disposition home or self-care (01) ==
LOC: LABW 09:12
PROVIDERS: ATTEND Nurse Practitioner Family
DX: I48.91 Unspecified atrial fibrillation (principal); R60.0 Localized edema; R06.89 Other abnormalities of breathing
CPT/HCPCS: 36415; 80053; 83880; 85027

== ENCOUNTER 2021-08-03 09:05 | Outpatient (CLI) | payer OTHER | END 2021-08-03 19:09 | disposition home or self-care (01) | LOC: CT 09:05 | PROVIDERS: ATTEND Nurse Practitioner Family | DX: J44.9 Chronic obstructive pulmonary disease, unspecified (principal); R22.1 Localized swelling, mass and lump, neck | CPT/HCPCS: 36415; 82565; 84520; Q9963 ==

== ENCOUNTER 2021-08-04 12:29 | Outpatient (CLI) | payer OTHER | END 2021-08-04 19:00 | disposition home or self-care (01) | LOC: LAB 12:29 | PROVIDERS: ATTEND Nurse Practitioner Family | DX: E03.8 Other specified hypothyroidism (principal) | CPT/HCPCS: 84439; 84443 ==

== ENCOUNTER 2021-09-08 14:51 | Outpatient (CLI) | payer OTHER | END 2021-09-08 19:47 | disposition home or self-care (01) | LOC: RESP 14:51 | PROVIDERS: ATTEND Specialist | DX: I35.0 Nonrheumatic aortic (valve) stenosis (principal); I38 Endocarditis, valve unspecified; I48.91 Unspecified atrial fibrillation ==

== ENCOUNTER 2021-12-08 14:56 | Outpatient (CLI) | payer OTHER | END 2021-12-08 18:54 | disposition home or self-care (01) | LOC: CT 14:56 | PROVIDERS: ATTEND Internal Medicine | DX: R47.81 Slurred speech (principal); R26.81 Unsteadiness on feet ==

== ENCOUNTER 2022-01-18 12:58 | Outpatient (CLI) | payer OTHER ==
[2022-01-19] MEDS ORDERED: TAMS0.4C PO (17:43)
[2022-01-19] MEDS ORDERED: FURO40TA93 PO (17:45)
[2022-01-19] MEDS ORDERED: FLONASE AL50 MCG/ACT NAS (17:45)
[2022-01-19] MEDS ORDERED: FEBUXOSTAT40 MG PO (17:46)
[2022-01-19] MEDS ORDERED: KLOR-CON M2020 MEQ PO (17:47)
[2022-01-19] MEDS ORDERED: BUDE1AER5 INH (17:48)
[2022-01-19] MEDS ORDERED: MONT10TA PO (17:48)
[2022-01-19] MEDS ORDERED: FINASTERIDE5 MG PO (17:49)
[2022-01-19] MEDS ORDERED: PANTOPRAZOLE 40MG TA PO (17:49)
[2022-01-19] MEDS ORDERED: SIMV40TA57 PO (17:50)
[2022-01-19] MEDS ORDERED: DIGOX125 MCG PO (17:50)
[2022-01-19] MEDS ORDERED: MYRBETRIQ50 MG PO (17:51)
[2022-01-19] MEDS ORDERED: METO25TA2 PO (17:51)
[2022-01-19] MEDS ORDERED: KP FOLIC ACID1 MG PO (17:52)
[2022-01-19] MEDS ORDERED: PRADAXA150 MG PO (17:52)
[2022-01-19] MEDS ORDERED: CYAN10009 IM (17:55)
[2022-01-19] MEDS ORDERED: EUTHYROX100 MCG PO (17:56)
[2022-01-19] MEDS ORDERED: TYLENOL325 MG PO (18:08)
[2022-01-19] MEDS ORDERED: VITAMIN D1000 UNI1 PO (18:09)
[2022-01-19] MEDS ORDERED: DULCOLAX SS100 MG PO (18:09)
== END 2022-01-18 18:55 | disposition home or self-care (01) ==
LOC: MRI 12:58
PROVIDERS: ATTEND Nurse Practitioner Family
DX: F03.90 Unspecified dementia, unspecified severity, without behavioral disturbance, psychotic disturbance, mood disturbance, and anxiety (principal); R26.81 Unsteadiness on feet; R47.81 Slurred speech; R53.1 Weakness
CPT/HCPCS: 36415; 82565; 84520

== ENCOUNTER 2022-01-19 08:54 | Inpatient (IN) | payer OTHER ==
[~2022-01-19] VITALS: Ht 184.2 cm; Wt 101.6 kg
[2022-01-19] VITALS (8 sets, daily range): BP systolic 142–158; BP diastolic 59–87; TEMP 98–99.3; Ht 184.2 cm; Wt 101.6 kg
[2022-01-19 10:22] LABS: PLATELET COUNT 155 K/uL (142-355)
[2022-01-19 10:31] LABS: POTASSIUM 3.8 mmol/L (3.6-5.2)
[2022-01-19] MEDS ORDERED: TAMS0.4C PO (17:43)
[2022-01-19] MEDS ORDERED: FURO40TA93 PO (17:45)
[2022-01-19] MEDS ORDERED: FLONASE AL50 MCG/ACT NAS (17:45)
[2022-01-19] MEDS ORDERED: FEBUXOSTAT40 MG PO (17:46)
[2022-01-19] MEDS ORDERED: KLOR-CON M2020 MEQ PO (17:47)
[2022-01-19] MEDS ORDERED: BUDE1AER5 INH (17:48)
[2022-01-19] MEDS ORDERED: MONT10TA PO (17:48)
[2022-01-19] MEDS ORDERED: FINASTERIDE5 MG PO (17:49)
[2022-01-19] MEDS ORDERED: PANTOPRAZOLE 40MG TA PO (17:49)
[2022-01-19] MEDS ORDERED: DIGOX125 MCG PO (17:50)
[2022-01-19] MEDS ORDERED: SIMV40TA57 PO (17:50)
[2022-01-19] MEDS ORDERED: METO25TA2 PO (17:51)
[2022-01-19] MEDS ORDERED: MYRBETRIQ50 MG PO (17:51)
[2022-01-19] MEDS ORDERED: KP FOLIC ACID1 MG PO (17:52)
[2022-01-19] MEDS ORDERED: PRADAXA150 MG PO (17:52)
[2022-01-19] MEDS ORDERED: CYAN10009 IM (17:55)
[2022-01-19] MEDS ORDERED: EUTHYROX100 MCG PO (17:56)
[2022-01-19] MEDS ORDERED: TYLENOL325 MG PO (18:08)
[2022-01-19] MEDS ORDERED: VITAMIN D1000 UNI1 PO (18:09)
[2022-01-19] MEDS ORDERED: DULCOLAX SS100 MG PO (18:09)
[2022-01-20] VITALS: BP 139/56; TEMP 97.9
[2022-01-20 04:00] VITALS: BP 121/56; TEMP 97.8
[2022-01-20 05:39] LABS: PLATELET COUNT 136 K/uL (142-355)
[2022-01-20 05:44] LABS: POTASSIUM 3.4 mmol/L (3.6-5.2)
[2022-01-20 08:00] VITALS: BP 138/81; TEMP 97.9
[2022-01-20 12:00] VITALS: BP 138/79; TEMP 97.9
[2022-01-20 16:00] VITALS: BP 111/63; TEMP 98.4
[2022-01-20 20:00] VITALS: BP 143/74; TEMP 98.1
[2022-01-21] VITALS: BP 145/64; TEMP 98.8
[2022-01-21 04:00] VITALS: BP 142/56; TEMP 97.8
[2022-01-21 08:00] VITALS: BP 188/90; TEMP 98.4
[2022-01-21 12:00] VITALS: BP 181/87; TEMP 98.1
[2022-01-21 16:00] VITALS: BP 135/75; TEMP 97.5
[2022-01-21] MEDS ORDERED: LEVAQUIN250 MG PO (16:23)
[2022-01-21 20:00] VITALS: BP 136/82; TEMP 98.1
[2022-01-22] VITALS: BP 128/71; TEMP 98.4
[2022-01-22 04:00] VITALS: BP 140/90; TEMP 98.1
[2022-01-22 08:00] VITALS: BP 126/76; TEMP 97.8
[2022-01-22 12:00] VITALS: BP 131/79; TEMP 98
== END 2022-01-22 02:10 | DRG 689 ==
LOC: ED 08:54 → MED/SURG 11:48
PROVIDERS: ADMIT Family Medicine; ATTEND Internal Medicine
DX: N39.0 Urinary tract infection, site not specified (principal); G92.8 Other toxic encephalopathy; B96.20 Unspecified Escherichia coli [E. coli] as the cause of diseases classified elsewhere; I48.91 Unspecified atrial fibrillation; Z79.01 Long term (current) use of anticoagulants; N40.0 Benign prostatic hyperplasia without lower urinary tract symptoms; E83.42 Hypomagnesemia; E87.6 Hypokalemia; J44.9 Chronic obstructive pulmonary disease, unspecified; I11.0 Hypertensive heart disease with heart failure; I50.9 Heart failure, unspecified; W18.39XA Other fall on same level, initial encounter; Y92.89 Other specified places as the place of occurrence of the external cause
CPT/HCPCS: 36415; 80053; 81002; 81015; 83735; 85027; 87077; 87086; 87088; 87186; 87635; 96360; 96361; 96365; 99284; J2543; J3475; U0003

== ENCOUNTER 2022-01-22 12:35 | Inpatient (IN) | payer OTHER ==
[~2022-01-22 12:35] MED LIST changes: +CYAN10009 IM; +DULCOLAX SS100 MG PO; +EUTHYROX100 MCG PO; +FEBUXOSTAT40 MG PO; +FLONASE AL50 MCG/ACT NAS; +KLOR-CON M2020 MEQ PO; +KP FOLIC ACID1 MG PO; +LEVAQUIN250 MG PO; +METO25TA2 PO; +MONT10TA PO; +MYRBETRIQ50 MG PO; +TYLENOL325 MG PO; +VITAMIN D1000 UNI1 PO
== END 2022-01-28 09:10 | disposition still patient (30) ==
LOC: PAVC 12:35
PROVIDERS: ADMIT Internal Medicine; ATTEND Internal Medicine
DX: N39.0 Urinary tract infection, site not specified (principal); B96.20 Unspecified Escherichia coli [E. coli] as the cause of diseases classified elsewhere; G92.8 Other toxic encephalopathy; M62.81 Muscle weakness (generalized); R13.12 Dysphagia, oropharyngeal phase; R26.2 Difficulty in walking, not elsewhere classified; R26.81 Unsteadiness on feet; Z74.1 Need for assistance with personal care
CPT/HCPCS: 87081

== ENCOUNTER 2022-01-23 07:02 | Outpatient (CLI) | payer OTHER | END 2022-01-23 18:55 | disposition home or self-care (01) | LOC: LAB 07:02 | PROVIDERS: ATTEND Internal Medicine | DX: I10 Essential (primary) hypertension (principal); R26.81 Unsteadiness on feet; R47.81 Slurred speech | CPT/HCPCS: 87081 ==

== ENCOUNTER 2022-02-27 13:44 | Inpatient (IN) | payer OTHER | END 2022-03-30 12:10 | disposition still patient (30) | LOC: PAVC 13:44 | PROVIDERS: ADMIT Internal Medicine; ATTEND Internal Medicine ==

== ENCOUNTER 2022-03-05 08:35 | Outpatient (CLI) | payer OTHER | END 2022-03-05 19:02 | disposition home or self-care (01) | LOC: LAB 08:35 | PROVIDERS: ATTEND Internal Medicine | DX: R47.1 Dysarthria and anarthria (principal); H02.403 Unspecified ptosis of bilateral eyelids; M62.81 Muscle weakness (generalized) | CPT/HCPCS: 36415; 82085; 82390; 82525; 82550; 82607; 82746; 83519; 84425; 84443; 85652; 86038; 86235; 86334 ==

== ENCOUNTER 2022-03-30 12:27 | Inpatient (IN) | payer OTHER | END 2022-04-29 15:15 | disposition still patient (30) | LOC: PAVC 12:27 | PROVIDERS: ADMIT Internal Medicine; ATTEND Internal Medicine ==

== ENCOUNTER 2022-04-28 14:25 | Outpatient (CLI) | payer OTHER ==
[2022-04-28 14:35] LABS: PLATELET COUNT 149 K/uL (142-355)
== END 2022-04-28 19:42 | disposition home or self-care (01) ==
LOC: LAB 14:25
PROVIDERS: ATTEND Internal Medicine
DX: R79.89 Other specified abnormal findings of blood chemistry (principal)
CPT/HCPCS: 85027

== ENCOUNTER 2022-04-29 15:41 | Inpatient (IN) | payer OTHER | END 2022-05-30 10:47 | disposition still patient (30) | LOC: PAVC 15:41 | PROVIDERS: ADMIT Internal Medicine; ATTEND Internal Medicine ==

== ENCOUNTER 2022-06-15 06:38 | Inpatient (IN) | payer OTHER ==
[~2022-06-15] VITALS: Ht 182.9 cm; Wt 101.6 kg
[2022-06-15 06:38] VITALS: BP 172/86; TEMP 97.8
[2022-06-15 07:41] LABS: PLATELET COUNT 148 K/uL (142-355)
[2022-06-15 07:47] LABS: POTASSIUM 4.2 mmol/L (3.6-5.2)
[2022-06-15 11:52] VITALS: BP 148/66; TEMP 98.6; Ht 182.9 cm; Wt 101.6 kg
[2022-06-15] MEDS ORDERED: ALLERGY RELIEF180 MG PO (14:16)
[2022-06-15] MEDS ORDERED: HYDR25SU3 RE (14:18)
[2022-06-15] MEDS ORDERED: AZELASTINE HYDR1 SPR NAS (14:23)
[2022-06-15] MEDS ORDERED: VITAMIN DE1000 MCG/M IM (14:28)
[2022-06-15] MEDS ORDERED: PSYL0.52C PO (14:37)
[2022-06-15] MEDS ORDERED: MULTIVITAMI1 PO (14:38)
[2022-06-15] MEDS ORDERED: SYSTAN1 OPTH (14:40)
[2022-06-15] MEDS ORDERED: [UNRECOGNIZED DRUG - OTHER] OPTH (14:42)
[2022-06-15 16:00] VITALS: BP 132/79; TEMP 98.1
[2022-06-15 19:33] VITALS: BP 144/71; TEMP 98.1
[2022-06-15 23:33] VITALS: BP 128/62; TEMP 98.4
[2022-06-16 03:33] VITALS: BP 146/67; TEMP 97.7
[2022-06-16 05:07] LABS: PLATELET COUNT 142 K/uL (142-355)
[2022-06-16 05:26] LABS: POTASSIUM 4.1 mmol/L (3.6-5.2)
[2022-06-16 08:00] VITALS: BP 131/77; TEMP 97.6
[2022-06-16] MEDS ORDERED: LEVO250T2 PO (09:37)
[2022-06-16 12:00] VITALS: BP 135/73; TEMP 98
[2022-06-16 16:00] VITALS: BP 106/55; TEMP 97.6
[2022-06-16 20:00] VITALS: BP 125/59; TEMP 98.2
[2022-06-17] VITALS: BP 150/69; TEMP 97.9
[2022-06-17 04:00] VITALS: BP 120/71; TEMP 98.9
[2022-06-17 08:00] VITALS: BP 116/65; TEMP 98.6
[2022-06-17 12:00] VITALS: BP 121/70; TEMP 98.2
[2022-06-17 16:00] VITALS: BP 127/69; TEMP 98.5
[2022-06-17 20:00] VITALS: BP 113/54; TEMP 98.4
[2022-06-18] VITALS: BP 115/48; TEMP 98.2
[2022-06-18 04:00] VITALS: BP 138/63; TEMP 97.5
[2022-06-18 04:29] LABS: PLATELET COUNT 133 K/uL (142-355)
[2022-06-18 04:45] LABS: POTASSIUM 3.9 mmol/L (3.6-5.2)
[2022-06-18 08:00] VITALS: BP 101/40; TEMP 98.4
[2022-06-18 12:00] VITALS: BP 135/73; TEMP 97.6
[2022-06-18 15:52] VITALS: BP 135/73; TEMP 97.6
[2022-06-18 19:29] VITALS: BP 135/69; TEMP 98.1
[2022-06-19] VITALS (7 sets, daily range): BP systolic 109–139; BP diastolic 54–67; TEMP 97.7–98.4
[2022-06-20 03:57] VITALS: BP 136/71; TEMP 97.9
[2022-06-20 08:00] VITALS: BP 151/73; TEMP 97.5
[2022-06-20 12:00] VITALS: BP 140/71; TEMP 97.7
[2022-06-20 16:00] VITALS: BP 129/56; TEMP 97.7
[2022-06-20 19:30] VITALS: BP 128/59; TEMP 97.9
[2022-06-20 23:40] VITALS: BP 161/82; TEMP 98
[2022-06-21 03:48] VITALS: BP 169/81; TEMP 97.8
[2022-06-21 08:00] VITALS: BP 163/81; TEMP 97.8
[2022-06-21] MEDS ORDERED: PRED20TA27 PO (09:42)
[2022-06-21] MEDS ORDERED: PROMETHAZINE12.5 M3 PO (09:42)
[2022-06-21] MEDS ORDERED: CEFD300C2 PO (09:42)
== END 2022-06-21 11:52 | disposition home or self-care (01) | DRG 190 ==
LOC: ED 06:38 → MED/SURG 09:00
PROVIDERS: Emergency Medicine Emergency Medical Services; Internal Medicine; ADMIT Internal Medicine; ATTEND Internal Medicine
DX: J44.0 Chronic obstructive pulmonary disease with (acute) lower respiratory infection (principal); J18.8 Other pneumonia, unspecified organism; I48.21 Permanent atrial fibrillation; I13.0 Hypertensive heart and chronic kidney disease with heart failure and stage 1 through stage 4 chronic kidney disease, or unspecified chronic kidney disease; E78.49 Other hyperlipidemia; J44.1 Chronic obstructive pulmonary disease with (acute) exacerbation; F03.90 Unspecified dementia, unspecified severity, without behavioral disturbance, psychotic disturbance, mood disturbance, and anxiety; K21.9 Gastro-esophageal reflux disease without esophagitis; M15.8 Other polyosteoarthritis; N40.0 Benign prostatic hyperplasia without lower urinary tract symptoms; E03.8 Other specified hypothyroidism; Z91.81 History of falling; Z79.01 Long term (current) use of anticoagulants; N18.31 Chronic kidney disease, stage 3a; R91.1 Solitary pulmonary nodule; S00.03XA Contusion of scalp, initial encounter; W18.39XA Other fall on same level, initial encounter; Y92.122 Bedroom in nursing home as the place of occurrence of the external cause; I50.9 Heart failure, unspecified
CPT/HCPCS: 36415; 80048; 80053; 80162; 81002; 82550; 83735; 84145; 84443; 85027; 85652; 86140; 87040; 87635; 93005; 94664; 94760; 96360; 96361; 96365; 99284; A9576; J0696; J1956; J2930; Q9963; U0003